=== PATIENT | male | born 1995 | race Caucasian/White ===

== ENCOUNTER 2016-04-12 02:36 | Emergency (ER) | payer BC ==
[2016-04-12 02:58] VITALS: TEMP 98.2; O2SAT 96
[2016-04-12] MEDS ORDERED: HYDROCOD/APAP 5/325 PREPACK#6 BTL TAKEHOME ONE (04:09)
--- NOTE | 2016-04-12 04:09 | EDPHY ---
H & P Stated Complaint: atraumatic, tail bone pain Time Seen by Provider: 04/12/16 03:04 HPI/ROS: Chief complaint: Buttocks pain HPI: 20-year-old male presenting with 2 days of worsening pain in his upper central buttocks. Patient states he has noted a lump in that region which is tender. Denies any trauma. Does not have a prior injury. No fevers or chills. No nausea or vomiting. Does not have any other past medical history. Does not have any issues having a bowel movement or urinating. ROS: 10 point Review of Systems is negative except as noted in the HPI. Physical exam: Gen: Awake, Alert, No Distress HEENT: Nose: no rhinorrhea Eyes: PERRLA, EOMI Mouth: Moist mucosa Neck: Supple, no JVD Chest: nontender, lungs clear to auscultation Heart: S1, S2 normal, no murmur Abd: Soft, non-tender, no guarding Back: no CVA tenderness, no midline tenderness, he has swelling, tenderness and fluctuance in the pilonidal region, no surrounding erythema. Area of fluctuance is about 3 cm in diameter. 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2 - Social History Smoking Status: Light smoker Constitutional: Initial Vital Signs Temperature (C) 36.8 C 04/12/16 02:55 Heart Rate 99 04/12/16 02:55 Respiratory Rate 18 04/12/16 02:55 Blood Pressure 125/73 H 04/12/16 02:55 O2 Sat (%) 96 04/12/16 02:55 O2 Delivery Mode Room Air Allergies/Adverse Reactions: No Known Allergies Allergy (Unverified 04/12/16 02:54) Home Medications: Medication Instructions Recorded Hydrocodone/Acetaminophen 1 - 2 each PO Q4-6PRN PRN #10 04/12/16 [Hydrocodon-Acetaminophen 5-325] tablet Lexapro 10 MG 04/12/16 Medical Decision Making Procedures: Procedure: Abscess drainage. The patient's abscess was located on the pilonidal region. I obtained verbal consent from the patient to drain the abscess who was informed about the possibility of bleeding and pain. The abscess was incised with 11 blade scalpel and a large amount of purulent drainage was expressed. I irrigated the wound and placed some packing. The patient tolerated the procedure well. The procedure was performed by myself. - Data Points Medications Given: Discontinued Medications Acetaminophen/Hydrocodone Bitart ([place] 5/325mg Prepack#6) 1 btl TAKEHOME EDNOW ONE Stop: 04/12/16 04:10 Last Admin: 04/12/16 04:17 Dose: 1 btl Departure - Departure Disposition: Home, Routine, Self-Care Clinical Impression: Pilonidal abscess Condition: Good Instructions: Hydrocodone/Acetaminophen (By mouth), Pilonidal Cyst (ED) Additional Instructions: Leave the dressing in place until your seen by her primary care physician on Friday. You may take [place] and ibuprofen as needed for pain. Return to the emergency depart for increasing pain, fevers, chills, nausea, vomiting, or any other concerns. Referrals: Antoinette Verdugo MD [Primary Care Provider] - As per Instructions Prescriptions: Hydrocodone/Acetaminophen [Hydrocodon-Acetaminophen 5-325] 1 - 2 each PO Q4- 6PRN PRN #10 tablet PRN Reason: Pain, Severe
[2016-04-12 04:24] VITALS: BP 110/74; PULSE 98; RESP 16
== END 2016-04-12 04:24 | disposition home or self-care (01) ==
PROC: 0J990ZZ Drainage of Buttock Subcutaneous Tissue and Fascia, Open Approach (ICD-10-PCS; principal; 2016-04-12)
DX: L05.01 Pilonidal cyst with abscess (principal); F17.200 Nicotine dependence, unspecified, uncomplicated